=== PATIENT | female | born 1955 | race Caucasian/White ===

== ENCOUNTER 2017-06-15 19:03 | Inpatient (IN) | payer OTHER ==
[~2017-06-15] VITALS: Ht 167.6 cm; Wt 73.5 kg
[2017-06-15] MEDS ORDERED: ONDANSETRON HCL 4 MG/2 ML VIAL IV ONE ×2 (19:45→23:30)
[2017-06-15] MEDS ORDERED: MORPHINE SULF INJ 2 MG/ML SYRINGE 1ML IV ONE ×2 (19:45→23:30)
[2017-06-15 21:09] LABS: Basophils # (auto) 0.1 uL; Basophils % (auto) 0.7 % (0.0-2.0); Eosinophils # (auto) 0.2 uL; Hematocrit 42.8 % (36.0-46.0); Hemoglobin 14.6 g/dL (12.2-16.2); Lymphocytes % (auto) 25.3 % (10.0-50.0); Mean Corpuscular Hemoglobin 31.3 pg (28.0-32.0); Mean Corpuscular Hgb Conc. 34.2 g/dL (32.0-36.0); Mean Corpuscular Volume 91.5 fL (80.0-100.0); Mean Platelet Volume 7.3 fL (6.9-10.8); Monocytes # (auto) 0.8 uL; Monocytes % (auto) 9.8 % (0.0-12.0); Neutrophils # (auto) 4.8 uL; Neutrophils % (auto) 62.2 % (37.0-80.0); Platelet Count (auto) 281 10^3/uL (140-450); Red Cell Distribution Width 13.3 % (11.8-14.3); White Blood Cell 7.7 10^3/uL (4.4-10.8)
[2017-06-15 21:17] LABS: Albumin 4.2 g/dL (3.4-5.0); Alkaline Phosphatase 83 U/L (45-117); Anion Gap 7 (5-15); Aspartate Aminotransferase 26 U/L (15-37); BUN/Creatinine Ratio 12.9; Bilirubin, Total 0.4 mg/dL (0.2-1.0); Blood Urea Nitrogen 11 mg/dL (7-18); Carbon Dioxide 28 mmol/L (21-32); Chloride 104 mmol/L (98-107); GFR African American 88 mL/min; GFR Non-African American 73 mL/min; Glucose 93 mg/dL (74-106); Potassium 3.5 mmol/L (3.5-5.1); Sodium 139 mmol/L (136-145); Total Protein 7.7 g/dL (6.4-8.2)
[2017-06-15 22:00] LABS: INR 0.98 (0.9-1.15)
[2017-06-15 22:35] LABS: B-Type Natriuretic Peptide 7.73 pg/mL (0-100)
[2017-06-15 22:46] LABS: Temperature: 23.3 C (20.0-25.0)
[2017-06-16] MEDS ORDERED: MORPHINE SULF INJ 2 MG/ML SYRINGE 1ML IV PRN (02:15)
[2017-06-16] MEDS ORDERED: TEMAZEPAM 15 MG CAP PO PRN (02:15)
[2017-06-16] MEDS ORDERED: ACETAMINOPHEN 325 MG TAB PO PRN (02:15)
[2017-06-16] MEDS ORDERED: NITROGLYCERIN 0.4 MG SL TAB SL PRN (02:15)
[2017-06-16] MEDS ORDERED: ONDANSETRON HCL 4 MG/2 ML VIAL IV PRN (02:15)
[2017-06-16] MEDS ORDERED: DEXTROSE (50%) 50ML SYRG IV PRN ×2 (02:15→15:00)
[2017-06-16] MEDS ORDERED: CARISOPRODOL 350 MG TAB PO PRN (02:15)
[2017-06-16] MEDS: InsuLIN REG 1unit/0.01ml Soln (100units/ml) SC SCH ×2 (05:31→12:00)
[2017-06-16] MEDS: ACCU-CHEK COMFORT CURVE STRIP VI SCH ×2 (05:31→12:00)
[2017-06-16] MEDS: HYDROcodone-ACET 5/325MG TAB PO PRN ×2 (07:21→21:29)
[2017-06-16] MEDS: LISINOPRIL 10 MG TAB PO SCH (10:00)
[2017-06-16] MEDS ORDERED: ASPirin 81 mg TAB PO SCH (10:00)
[2017-06-16] MEDS: lamoTRIgine 100 MG TAB PO SCH ×2 (10:00→22:59)
[2017-06-16] MEDS: ENOXAPARIN SOD 40 MG/0.4 ML SYRINGE SC SCH (10:00)
[2017-06-16 12:17] VITALS: BP 137/61
[2017-06-16] MEDS ORDERED: ADENOSINE 61 MG in GIVE UN-DILUTED 0 ML IV STA (12:30)
[2017-06-16] MEDS ORDERED: ASPirin 81 mg TAB PO ONE (15:30)
[2017-06-16] MEDS ORDERED: FLUO-125 PO (16:49)
[2017-06-16] MEDS ORDERED: GLIP-115 PO (16:50)
[2017-06-16] MEDS ORDERED: ALPR1TAB7 PO (16:54)
[2017-06-16] MEDS ORDERED: ROSU10TA16 PO (16:54)
[2017-06-16] MEDS ORDERED: ACCU-CHEK COMFORT CURVE STRIP VI SCH (17:00)
[2017-06-16] MEDS ORDERED: InsuLIN REG 1unit/0.01ml Soln (100units/ml) SC SCH (17:00)
[2017-06-16] MEDS ORDERED: [UNRECOGNIZED DRUG - CODE] PO (17:01)
[2017-06-16] MEDS ORDERED: LISI10TA6 PO (17:01)
[2017-06-16] MEDS ORDERED: CARV6.2551 PO (17:02)
[2017-06-16] MEDS ORDERED: ISO20T PO (17:02)
[2017-06-16] MEDS ORDERED: LAMO200T34 PO (17:03)
[2017-06-16 17:11] VITALS: BP 120/46
[2017-06-16] MEDS: FAMOTIDINE 20 MG TAB PO SCH ×2 (17:30→23:00)
[2017-06-16 20:22] LABS: Urine Bilirubin Negative (Negative); Urine Blood Negative /uL (Negative); Urine Color Yellow (Yellow); Urine Glucose Normal (Normal); Urine Ketone Negative (Negative); Urine Mucus FEW (None Seen); Urine Nitrite Negative (Negative); Urine RBC None Seen /hpf (0 - 4); Urine Squamous Epithelial Cell FEW /hpf (<5); Urine Urobilinogen Normal (Negative)
[2017-06-16 21:53] VITALS: BP 119/60
[2017-06-16] MEDS ORDERED: ATORVASTATIN 20 MG TAB PO SCH (22:00)
[2017-06-17 05:56] VITALS: BP 98/48
[2017-06-17 05:56] LABS: Basophils # (auto) 0.1 uL; Basophils % (auto) 0.9 % (0.0-2.0); Eosinophils # (auto) 0.2 uL; Eosinophils % (auto) 2.9 % (0.0-7.0); Hematocrit 42.6 % (36.0-46.0); Hemoglobin 14.2 g/dL (12.2-16.2); Lymphocytes % (auto) 33.2 % (10.0-50.0); Mean Corpuscular Hemoglobin 31.2 pg (28.0-32.0); Mean Corpuscular Hgb Conc. 33.4 g/dL (32.0-36.0); Mean Corpuscular Volume 93.4 fL (80.0-100.0); Mean Platelet Volume 7.3 fL (6.9-10.8); Monocytes # (auto) 0.7 uL; Monocytes % (auto) 11.2 % (0.0-12.0); Neutrophils # (auto) 3.2 uL; Neutrophils % (auto) 51.8 % (37.0-80.0); Nucleated Red Blood Cells % 0.2 %; Platelet Count (auto) 262 10^3/uL (140-450); Red Cell Distribution Width 12.9 % (11.8-14.3); White Blood Cell 6.1 10^3/uL (4.4-10.8)
[2017-06-17 06:25] LABS: Albumin 3.6 g/dL (3.4-5.0); BUN/Creatinine Ratio 19.3; Bilirubin, Total 0.4 mg/dL (0.2-1.0); Calcium 8.7 mg/dL (8.5-10.1); Potassium 4.2 mmol/L (3.5-5.1); Total Protein 7.1 g/dL (6.4-8.2)
[2017-06-17] MEDS: ENOXAPARIN SOD 40 MG/0.4 ML SYRINGE SC SCH (10:00)
[2017-06-17] MEDS ORDERED: ASPirin 81 mg TAB PO SCH (10:00)
[2017-06-17] MEDS: lamoTRIgine 100 MG TAB PO SCH (10:37)
[2017-06-17] MEDS: FAMOTIDINE 20 MG TAB PO SCH (10:37)
[2017-06-17] MEDS: LISINOPRIL 10 MG TAB PO SCH (10:38)
[2017-06-17 11:55] VITALS: BP 136/61
== END 2017-06-17 12:30 | disposition home or self-care (01) | DRG 206 ==
LOC: ER 19:10 → TELE 19:11 → TELE-E-ADS 06-16 07:46 → TELE-WESTW 06-16 16:28
PROVIDERS: ADMIT Nurse Practitioner; ATTEND Internal Medicine
DX: M94.0 Chondrocostal junction syndrome [Tietze] (principal); E11.51 Type 2 diabetes mellitus with diabetic peripheral angiopathy without gangrene; I69.354 Hemiplegia and hemiparesis following cerebral infarction affecting left non-dominant side; I25.10 Atherosclerotic heart disease of native coronary artery without angina pectoris; I10 Essential (primary) hypertension; E78.5 Hyperlipidemia, unspecified; Z95.5 Presence of coronary angioplasty implant and graft; I25.2 Old myocardial infarction
CPT/HCPCS: 36415; 71010; 78452; 80053; 80061; 81001; 82962; 83036; 83735; 83880; 84443; 84484; 85025; 85379; 85610; 85730; 93005; 93017; 94761; 96365; 96374; 96375; 96376; J0153; J2405